=== PATIENT | male | born 1980 | race African-American/Black ===

== ENCOUNTER 2017-08-06 23:33 | Emergency (ER) | payer OTHER ==
[2017-08-06] MEDS ORDERED: MECLIZINE HCL 25 MG TAB PO ONE (23:54)
[2017-08-06] MEDS ORDERED: NS 1,000 ML IV ONE (23:54)
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
[2017-08-06] MEDS ORDERED: GABAPENTIN 300 MG CAP PO ONE (23:56)
[2017-08-07 00:25] LABS: PLATELET COUNT 242 10^3/uL (150-400)
[2017-08-07 00:58] VITALS: BP 119/76
== END 2017-08-07 00:57 | disposition home or self-care (01) ==
DX: M79.671 Pain in right foot (principal); M79.672 Pain in left foot; R42 Dizziness and giddiness; E86.9 Volume depletion, unspecified; E11.9 Type 2 diabetes mellitus without complications; J44.9 Chronic obstructive pulmonary disease, unspecified; F17.200 Nicotine dependence, unspecified, uncomplicated